=== PATIENT | female | born 1970 | race Hispanic/Latino ===

== ENCOUNTER 2018-01-20 14:34 | Emergency (ER) | payer OTHER ==
[2018-01-20 15:32] LABS: #Basophils 0.1 thou/uL (0.0-0.2); #Eosinphils 0.2 thou/uL (0.0-0.7); #Lymphocytes 2.6 thou/uL (1.20-3.40); #Monocytes 0.7 thou/uL (0.11-0.59); #Neutrophils 5.2 thou/uL (1.40-6.50); %Basophils 0.6 % (0.0-1.0); %Eosinophils 2.2 % (0.0-10.0); %Monocytes 7.6 % (0.0-10.0); %Neutrophils 59.7 % (42.0-75.0); Hemoglobin 7.2 g/dL (12.0-16.0); Mean Corpuscular HGB CONC 30.9 g/dL (32.0-36.0); Mean Corpuscular Hemoglobin 24.3 pg (27.0-31.0); Mean Corpuscular Volume 78.7 fl (81.0-99.0); Mean Platelet Volume 9.6 fL (7.4-10.4); Platelet Count 433 thou/uL (130-400); RBC Distribution Width 22.8 % (11.5-14.5); Red Blood Cell (RBC) Count 2.96 mill/uL (4.20-5.40); White Blood Cell (WBC) Count 8.6 thou/uL (4.8-10.8)
[2018-01-20 15:54] LABS: Anisocytosis MODERATE=16-30 cells (100X) (0-5/hpf); Hypochromia SLIGHT = 6-15 cells (100X) (0-5/hpf); Large Platelets SLIGHT; MDiff Complete? YES; Microcytosis SLIGHT = 6-15 cells (100X) (0-5/hpf); Ovalocytes SLIGHT = 2-5 cells (100X) (0-1/hpf); PLT Morphology Comment Appears Increased; Poikilocytosis SLIGHT = 6-15 cells (100X) (0-5/hpf); Polychromasia SLIGHT = 2-3 cells (100X) (0-2/hpf); Schistocytes SLIGHT = 2-5 cells (100X) (0-1/hpf); Target Cells SLIGHT = 2-5 cells (100X) (0-1/hpf); Tear Drops SLIGHT = 2-5 cells (100X) (0-1/hpf)
--- NOTE | 2018-01-20 19:36 | ULT ---
PELVIC ULTRASOUND: 01/20/18 COMPARISON: None. HISTORY: Vaginal bleeding. TECHNIQUE: Multiplanar ryder scale, sonographic imaging of the pelvis obtained with transabdominal and endovagina l imaging. The ovaries are assessed with color flow and spectral analysis. FINDINGS: Uterus measures 13.0 x 6.6 x 8.1 cm, demonstrating nonspecific enlargement. The endometrial stripe is abnormally thickened measuring 2.7-3 cm. Left ovary could not be visualized despite transabdominal a nd endovaginal imaging. The right ovary measures 3.4 x 5.0 x 3.2 cm and demonstrates normal blood leslie w. there is a 3.5 x 3.1 x 2.7 cm cyst within the right ovary with a thin internal septation. Given se ptation and size, followup advised. No free fluid seen in the pelvis. IMPRESSION: 1. Nonspecific thickened endometrium, which may signify endometrial hyperplasia, endometrial elmer yp disease, or endometrial carcinoma in the proper clinical setting. Followup [employer] consultation sugges neteu. 2. Nonvisualization of the left ovary. 3. Septated cyst measuring up to 3.5 cm within the right ovary, for which followup ultrasound is suggested in six weeks. Code T POS: BLAINE
== END 2018-01-20 22:52 ==
LOC: ERS 14:34
DX: N93.9 Abnormal uterine and vaginal bleeding, unspecified (principal); D64.9 Anemia, unspecified; Z79.899 Other long term (current) drug therapy
CPT/HCPCS: 36415; 36430; 76856; 85025; 86850; 86900; 86901; P9016